=== PATIENT | male | born 1960 | race Caucasian/White ===

== ENCOUNTER 2019-01-25 05:40 | Day surgery (SDC) | payer OTHER ==
[~2019-01-25] VITALS: Ht 172.7 cm; Wt 64.0 kg
[2019-01-25] MEDS ORDERED: BENZOCAINE 20% 50 MCG/SPRAY 57 GM TP ONE (05:41)
[2019-01-25] MEDS ORDERED: ALBUTEROL SULFATE 2.5 MG/0.5 ML NEB SOLUTION NEB ONE (05:41)
[2019-01-25] MEDS ORDERED: LIDOCAINE 2% 5 ML JELLY TP ONE (05:41)
[2019-01-25] MEDS ORDERED: LIDOCAINE 4% 50 ML SOLUTION TP ONE (05:41)
[2019-01-25] MEDS ORDERED: SODIUM CHLORIDE 0.9% 1,000 ML IV ONE ×2 (06:06→06:30)
[2019-01-25] MEDS ORDERED: ASPI-1182 PO (07:29)
[2019-01-25] MEDS ORDERED: GABA-531 PO (07:29)
[2019-01-25] MEDS ORDERED: MONT10TA21 PO (07:29)
[2019-01-25] MEDS ORDERED: DOCU250C91 PO (07:29)
[2019-01-25] MEDS ORDERED: OMEP20 PO (07:29)
[2019-01-25] MEDS ORDERED: CETI10TA59 PO (07:29)
[2019-01-25] MEDS ORDERED: PRED10 PO (07:29)
[2019-01-25] MEDS ORDERED: DILT180C11 PO (07:29)
[2019-01-25] MEDS ORDERED: ATOR20TA86 PO (07:29)
[2019-01-25] MEDS ORDERED: MIRT30 PO (07:29)
[2019-01-25] MEDS ORDERED: FLUT16H NASAL (07:29)
[2019-01-25] MEDS ORDERED: SODI44SP18 NS (07:29)
[2019-01-25] MEDS ORDERED: QUET100T PO (07:29)
[2019-01-25] MEDS ORDERED: FLUT1AER4 PO (07:30)
[2019-01-25] MEDS ORDERED: MIDAZOLAM HCL 2 MG/2 ML VIAL ONE (07:54)
[2019-01-25] MEDS ORDERED: FentaNYL CITRATE-PF 100 MCG/2 ML VIAL ONE (07:55)
[2019-01-25] MEDS ORDERED: MethylPREDNISolone SOD SUCC 125 MG/2 ML VIAL IVP ONE (08:45)
[2019-01-25] MEDS ORDERED: MethylPREDNISolone SOD SUCC 125 MG/2 ML VIAL ONE (08:54)
[2019-01-25] MEDS ORDERED: OXYGEN THERAPY IH SCH (20:00)
== END 2019-01-25 10:10 | disposition home or self-care (01) ==
LOC: SURGERY 05:40
PROVIDERS: ATTEND Internal Medicine Critical Care Medicine
DX: J38.4 Edema of larynx (principal); B37.0 Candidal stomatitis; J42 Unspecified chronic bronchitis; I10 Essential (primary) hypertension; Z87.01 Personal history of pneumonia (recurrent); Z79.899 Other long term (current) drug therapy; Z98.890 Other specified postprocedural states
CPT/HCPCS: 31623; 31624; 71045; 87015; 87070; 87101; 87206; 87220; 88108; 88312; 93005; J2250; J2930; J3010; J7030